=== PATIENT | female | born 1930 | race Caucasian/White ===

== ENCOUNTER → 2017-09-19 10:05 | Day surgery (SDC) | payer MEDICARE, OTHER ==
[~2017-09-19] VITALS: Ht 154.9 cm; Wt 73.2 kg
--- NOTE | ~2017-09-19 | OP ---
PATIENT NAME: BRITTANY GILBERT MEDICAL RECORD: [id number] :[birth year] [facility] DATE: SURGEON: SADIA TOMLINSON MD DATE OF OPERATION: 09/19/2017 PROCEDURE: EGD with balloon dilatation. ALTERNATIVE ENERGY TECHNICIAN: Sadia Tomlinson MD SCOPE: Olympus video gastroscope. MEDICATIONS: Per TIVA anesthesia. The patient has multiple comorbidities to include advanced age, chronic kidney disease, hypertension, previous cerebrovascular accident, hyperlipidemia, and sleep apnea. The patient received 160 mg of propofol for this procedure, O2 4 liters. INDICATION FOR THE PROCEDURE: Dysphagia. Of note, the patient had an EGD with balloon dilatation on 08/17/2015 again for dysphagia in the distal esophageal area. This procedure was significant for a tight distal esophageal stricture, which was dilated to 45-Moroccan. She also had severe distal erosive esophagitis, which was biopsied with the presence of Yepez's esophagus, large hiatal hernia, mild gastritis, biopsied negative for H pylori and a small duodenal polyp was noted in the second portion of the duodenum with a negative path report. No significant pathological change. The patient will have an EGD this date. FINDINGS: Informed consent was given. The patient was made comfortable with the above medications. After reaching an adequate level of sedation by slow IV push, the patient was placed on her left side. The endoscope was then advanced under direct visualization through the posterior pharyngeal area and advanced to the distal esophagus. At the distal esophageal area, a ring was appreciated, which is due to refluxing; however, the main reason it is felt for the patient's dysphagia is the presence of a very large hiatal hernia. After the inspection part of the EGD was completed, we did advance a CRE microvasive balloon into this area, inflated it to 60-Moroccan, held it for 1 minute without complication. This area was much more relaxed with further inspection of the lower esophageal sphincter. I am unsure if this procedure today will significantly affect the change in this lady's ability to eat due to the presence of a large hiatal hernia, which I suspect is very problematic. The scope was then advanced through the gastroesophageal junction into the stomach and the mucosa was carefully inspected. Only minimal inflammation was appreciated and as the patient is on anticoagulants. We elected not to biopsy at this time. We then proceeded into the duodenum and mild inflammation was noted throughout. There was some narrowing, however, and I think this will need to be further explored with an upper GI, which will be scheduled. Of note, one of the most significant findings was retained food in the large hiatal hernia and photodocumentation was obtained. She does not have diabetes mellitus, so that is not the reason for the patient's gastroparesis, it likely is due again to the presence of a hiatal hernia as well as the significant medication profile. The scope was then withdrawn. OPERATIVE REPORT [id number] BRITTANY GILBERT IMPRESSION: 1. Stricture at the distal esophageal area with fairly normal tissue noted. This was dilated successfully to 60-Moroccan without complication. 2. Very large problematic hiatal hernia. 3. Retained food in the hiatal hernia, which is likely due to the presence of the hernia as well as the medication profile. 4. Mild gastritis. 5. Mild duodenitis, but some narrowing was noted within the examined duodenum and we will need to proceed with an upper GI. The patient will also benefit from an upper GI, which will help with discerning the motility of the esophagus, which appears to be somewhat dilated. PLAN: 1. Continue Protonix at 40 mg p.o. q.a.m. 2. Caution with anti-inflammatory drugs. 3. The patient to follow reflux precautions. 4. Upper GI to evaluate motility, we will need to also proceed with a small bowel follow through looking for any duodenal narrowing. TRANSINT:[id number] Voice Confirmation ID: [id number] DOCUMENT ID: [id number] SADIA TOMLINSON MD CC: [id number] DICTATION DATE: 09/19/17 1256 [employer]IS[employer] BRUSHER: 09/19/17 1623 [id number] [place] [address]
[~2017-09-19 10:05] MED LIST: ALDACTONE25 MG PO; EFFEXOR XR37.5 MG PO; ESTRACE 0.5 MG0.5 MG PO; FUROSEMIDE40 MG PO; GABAPENTIN100 MG PO; LEVOXYL25 MCG PO; LOSARTAN POTASS25 MG PO; NEURONTIN 300300 MG PO; PLAVIX75 MG PO; PROTONIX40 MG PO; REQUIP1 MG PO; ROPINIROLE HCL2 MG PO; TYLENOL W/CODEI1 TAB PO; VESICARE5 MG PO; XALATAN 0.0052.5 ML EACH EYE; ZOCOR10 MG PO
[2017-09-19 12:04] LABS: BASOPHILS 0.2 % (0-2); EOSINOPHILS 1.7 % (0-7); HEMATOCRIT 36.5 % (36.0-48.0); HEMOGLOBIN 11.7 g/dL (12-16); IMMATURE GRANULOCYTES 0.3 % (0-5); LYMPHOCYTES 23.4 % (15-50); MCH 32.6 pg (26.0-34.0); MCHC 32.1 g/dL (31.0-37.0); MCV 101.7 fL (80.0-100.0); MEAN PLATELET VOLUME 9.3 fL (7.4-10.4); MONOCYTES 13.1 % (2-11); NEUTROPHILS 61.3 % (40-80); PLATELET COUNT 240 10x3/uL (130-400); RBC 3.59 10x6/uL (4.00-5.40); RDW 13.5 % (11.5-14.5); WBC 6.3 10x3/uL (4.8-10.8)
[2017-09-19 12:23] VITALS: BP 120/65; Ht 154.9 cm; Wt 73.2 kg
[2017-09-19 12:23] LABS: ANION GAP 11.9 mmol/L (8-16); CALCIUM 9.5 mg/dL (8.5-10.1); CARBON DIOXIDE 30.3 mmol/L (21.0-32.0); CREATININE - SERUM 1.1 mg/dL (0.6-1.3); POTASSIUM - SERUM 4.2 mmol/L (3.5-5.1)
== END | disposition home or self-care (01) ==
LOC: D.OPS 10:05
PROVIDERS: Anesthesiology
DX: K22.2 Esophageal obstruction (principal); K44.9 Diaphragmatic hernia without obstruction or gangrene; K29.70 Gastritis, unspecified, without bleeding; K29.80 Duodenitis without bleeding; I12.9 Hypertensive chronic kidney disease with stage 1 through stage 4 chronic kidney disease, or unspecified chronic kidney disease; N18.9 Chronic kidney disease, unspecified; Z86.73 Personal history of transient ischemic attack (TIA), and cerebral infarction without residual deficits; E78.5 Hyperlipidemia, unspecified; G47.30 Sleep apnea, unspecified; Z01.812 Encounter for preprocedural laboratory examination

== ENCOUNTER → 2018-03-17 14:05 | Outpatient (CLI) | payer MEDICARE, OTHER ==
[2017-09-19 12:23] VITALS: BMI 30.5
[~2018-03-17 14:05] MED LIST changes: +VOLTAREN75 MG PO
== END | disposition home or self-care (01) ==
LOC: D.MRI 14:05
DX: M25.562 Pain in left knee (principal); M54.5 Low back pain

== ENCOUNTER 2018-04-02 19:05 | Emergency (ER) | payer MEDICARE, OTHER ==
[~2018-04-02] VITALS: Ht 154.9 cm; Wt 104.5 kg
[~2018-04-02 19:05] MED LIST changes: -VOLTAREN75 MG PO
[2018-04-02 19:09] VITALS: Ht 154.9 cm; Wt 104.5 kg
[2018-04-02 20:47] LABS: BASOPHILS 0.2 % (0-2); EOSINOPHILS 0.2 % (0-7); HEMATOCRIT 33.4 % (36.0-48.0); HEMOGLOBIN 10.8 g/dL (12-16); IMMATURE GRANULOCYTES 0.5 % (0-5); LYMPHOCYTES 15.1 % (15-50); MCH 32.1 pg (26.0-34.0); MCHC 32.3 g/dL (31.0-37.0); MCV 99.4 fL (80.0-100.0); MEAN PLATELET VOLUME 9.2 fL (7.4-10.4); MONOCYTES 12.7 % (2-11); NEUTROPHILS 71.3 % (40-80); PLATELET COUNT 234 10x3/uL (130-400); RBC 3.36 10x6/uL (4.00-5.40); RDW 13.5 % (11.5-14.5)
[2018-04-02 21:05] LABS: ALBUMIN 3.4 g/dL (3.4-5.0); ANION GAP 7.3 mmol/L (8-16); BILIRUBIN - TOTAL 0.35 mg/dL (0.2-1.3); CALCIUM 8.9 mg/dL (8.5-10.1); CARBON DIOXIDE 31.9 mmol/L (21.0-32.0); CREATININE - SERUM 1.1 mg/dL (0.6-1.3); POTASSIUM - SERUM 4.2 mmol/L (3.5-5.1); PROTEIN - SERUM 7.9 g/dL (6.4-8.2)
[2018-04-02] MEDS ORDERED: VOLTAREN75 MG PO (22:15)
[2018-04-02 22:57] VITALS: BP 139/64
== END 2018-04-02 22:45 ==
LOC: D.ER 19:05
PROVIDERS: Family Medicine
DX: M25.562 Pain in left knee (principal); M25.561 Pain in right knee; M25.552 Pain in left hip; R10.9 Unspecified abdominal pain; Z86.73 Personal history of transient ischemic attack (TIA), and cerebral infarction without residual deficits; I10 Essential (primary) hypertension; W05.0XXA Fall from non-moving wheelchair, initial encounter; Y93.89 Activity, other specified; Y92.019 Unspecified place in single-family (private) house as the place of occurrence of the external cause